=== PATIENT | female | born 1980 | race Caucasian/White ===

== ENCOUNTER 2018-06-20 13:22 | Inpatient (IN) | payer MEDICAID, OTHER ==
[~2018-06-20] VITALS: Ht 180.3 cm; Wt 100.5 kg
[2018-06-20] MEDS ORDERED: SODIUM CHLORIDE 0.9% 1,000ML IVBOLUS ONE (13:30)
[2018-06-20] MEDS ORDERED: SODIUM CHLORIDE FLUSH 10ML SYR IVF ONE (13:30)
[2018-06-20] MEDS ORDERED: SODIUM CHLORIDE 0.9% IV PRN (13:32)
[2018-06-20] MEDS ORDERED: MIDAZOLAM HCL IV PRN (13:32)
[2018-06-20] MEDS ORDERED: LACTULOSE 20 GM/30 ML UDC NG PRN (14:00)
[2018-06-20] MEDS ORDERED: LIDOCAINE-MPF 1%, 2ML ENDO PRN (14:00)
[2018-06-20] MEDS ORDERED: SENNOSIDES 8.8 MG/5 ML ORAL SOL NG PRN (14:00)
[2018-06-20] MEDS ORDERED: PLEASE ENTER ALLERGIES MC SCH (14:00)
[2018-06-20] MEDS ORDERED: DEXTROSE 4 GM TAB.CHEW PO PRN (14:00)
[2018-06-20] MEDS ORDERED: DEXTROSE 50%, 50ML SYRINGE IVPush PRN (14:00)
[2018-06-20] MEDS ORDERED: PLEASE ENTER HEIGHT AND WEIGHT MC SCH (14:00)
[2018-06-20] MEDS ORDERED: PHARMACY MAY ADJ FOR RENAL FX MC SCH (14:00)
[2018-06-20] MEDS ORDERED: BISACODYL 10 MG SUPP PR PRN ×2 (14:00→16:30)
[2018-06-20] MEDS: ALBUTEROL/IPRATROPIUM 2.5MG/0.5MG, 3 ML INLINE SCH ×3 (14:00→22:49)
[2018-06-20] MEDS ORDERED: GLUCAGON 1 MG IM PRN (14:00)
[2018-06-20] MEDS ORDERED: SENNA/DOCUSATE TABLET NG PRN (14:00)
[2018-06-20 14:23] LABS: MICROSCOPIC INDICATED
[2018-06-20] MEDS ORDERED: ALBUTEROL/IPRATROPIUM 2.5MG/0.5MG, 3 ML ONE (14:27)
[2018-06-20 14:30] LABS: AMPHETAMINE SCREEN, URINE Negative (Negative); BARBITURATE SCREEN, URINE Negative (Negative); BENZODIAZEPINE SCREEN, URINE Negative (Negative); CANNABINOID SCREEN, URINE Negative (Negative); COCAINE SCREEN, URINE Negative (Negative); METHADONE SCREEN, URINE Negative (Negative); OPIATE SCREEN, URINE Negative (Negative)
[2018-06-20 14:32] LABS: ALBUMIN 1.6 g/dL (3.4-5.0); ANION GAP 29 mmol/L (5-15); CALCIUM 6.6 mg/dL (8.5-10.1); CHLORIDE 72 mmol/L (98-107); INTERNATIONAL NORMALIZED RATIO 2.19 (0.93-1.1); PROTHROMBIN TIME 22.5 Seconds (9.6-11.5)
--- NOTE | 2018-06-20 14:36 | NUR ---
CT WAITING FOR MD TO SAY PT READY FOR TRANSPORT
[2018-06-20 14:38] LABS: MEAN CORPUSCULAR HEMOGLOBIN 33.4 pg (27.0-34.8); MEAN CORPUSCULAR HGB CONC 32.9 g/dL (32.4-35.8); MEAN CORPUSCULAR VOLUME 101.4 fL (80-100); MEAN PLATELET VOLUME 9.1 fL (7.4-10.4); PLATELET COUNT 97 x10^3/uL (130-400); RED BLOOD COUNT 2.94 x10^6/uL (3.82-5.3); RED CELL DISTRIBUTION WIDTH 23.9 % (9.6-15.2)
[2018-06-20 14:45] LABS: BILIRUBIN,TOTAL 12.5 mg/dL (0.2-1.0); CREATININE 0.82 mg/dL (0.55-1.02)
[2018-06-20 14:46] LABS: ALANINE AMINOTRANSFERASE 135 U/L (12-78); ALKALINE PHOSPHATASE 163 U/L (45-117); TRIGLYCERIDES 324 mg/dL (50-200)
[2018-06-20 14:47] LABS: CULTURE INDICATED? YES
[2018-06-20 14:47] LABS: TROPONIN I 0.051 ng/mL (0.000-0.045)
[2018-06-20 14:51] LABS: ACETAMINOPHEN < 2 mcg/mL (10-30); SALICYLATE LEVEL < 1.7 mg/dL (2.8-20.0)
--- NOTE | 2018-06-20 14:52 | NUR ---
CENTRAL LINE PLACED.
[2018-06-20] MEDS ORDERED: NOREPINEPHRINE 4 MG in SODIUM CHLORIDE 0.9% 246 ML IV PRN (15:00)
[2018-06-20] MEDS ORDERED: PIPERACILLIN/TAZO/PMX 3.375GM 50 ML IV SCH (15:00)
--- NOTE | 2018-06-20 15:03 | NUR ---
CENTRAL LINE PLACED IN R IJ W/O COMPLICATION OR SIGNIFICANT BLEEDING. LEVOPHED INITIATIED. PT REMAINS ON ARTIC SUN.
[2018-06-20 15:07] LABS: CREATINE KINASE, TOTAL 1494 U/L (26-192)
--- NOTE | 2018-06-20 15:13 | NUR ---
CT PENDING;PT UNSTABLE PER RN-SHE WILL CALL WHEN READY
[2018-06-20 15:18] LABS: MD YES
[2018-06-20 15:20] LABS: BAND#(MANUAL) 1.73 x10^3/uL; BANDS%(MANUAL) 9 % (0-7); LYMPH#(MANUAL) 1.15 x10^3/uL (1-3.4); LYMPHS% (MANUAL) 6 % (22-44); MONOS#(MANUAL) 0.58 x10^3/uL (0.3-2.7); MONOS% (MANUAL) 3 % (2-9); NRBC % (MANUAL) 3 % (0-1); SEG#(MANUAL) 15.74 x10^3/uL (1.8-6.8); SEGS% (MANUAL) 82 % (42-75)
--- NOTE | 2018-06-20 15:20 | NUR ---
CXR DONE CONFIRMING CENTRAL LINE PLACEMENT. LEVOPHED INFUSING. BP REMAINS 55/20. + CENTRAL PULSES. ABSENT PERIPHERAL PULSES. ABG DRAWN. FAMILY AT .
[2018-06-20 15:21] LABS: ANISOCYTOSIS 2+
[2018-06-20 15:22] LABS: HYPOCHROMIA 1+; POLYCHROMASIA 1+
[2018-06-20 15:24] LABS: BASOPHILLIC STIPPLING 1+; TOXIC GRAN 1+
[2018-06-20 15:25] LABS: <PLATELET ESTIMATE> DECREASED; LARGE PLATELETS 1+
[2018-06-20] MEDS ORDERED: SODIUM CHLORIDE 0.9%, 500ML IVBOLUS ONE (15:30)
--- NOTE | 2018-06-20 15:38 | NUR ---
BP IMPROVING WITH LEVOPHED AND W/O NS BOLUS
--- NOTE | 2018-06-20 15:47 | NUR ---
CALLING REPORT TO CALVIN WALLER
--- NOTE | 2018-06-20 15:54 | NUR ---
REPORT CALLED TO CALVIN WALLER. DR LOVE TO BS. PT TO GO FOR CT /A TXR TO CCU.
[2018-06-20] MEDS: INSULIN LISPRO 100 UNITS/ML, PEN SQ-INSULIN SCH ×2 (16:00→21:30)
--- NOTE | 2018-06-20 16:15 | NUR ---
PT TRANSPORTED TO CT WITH RN, TECH, RT BAGGING PT. PT THEN TRANSPORTED TO CCU
[2018-06-20] MEDS ORDERED: PHYTONADIONE 10 MG in SODIUM CHLORIDE 0.9% 50 ML IV ONE (16:30)
[2018-06-20] MEDS ORDERED: POLYETHYLENE GLYCOL 17 GM PACKET PO PRN (16:30)
[2018-06-20] MEDS ORDERED: morphine SULFATE 10 MG/ML, 1ML IVPush PRN (16:30)
[2018-06-20] MEDS ORDERED: OXYcodone IR 5MG TABLET PO PRN (16:30)
[2018-06-20] MEDS ORDERED: ONDANSETRON 2MG/ML, 2ML IVPush PRN (16:30)
[2018-06-20] MEDS ORDERED: CALCIUM CHLORIDE 13.6 MEQ in SODIUM CHLORIDE 0.9% 100 ML IV ONE (17:00)
[2018-06-20] MEDS ORDERED: PROPOFOL 100 ML IV ONE (17:02)
[2018-06-20 17:05] LABS: CHLORIDE 76 mmol/L (98-107)
[2018-06-20 17:09] LABS: TROPONIN I 0.058 ng/mL (0.000-0.045)
[2018-06-20] MEDS: THIAMINE 200 MG in SODIUM CHLORIDE 0.9% 50 ML IV SCH (17:14)
[2018-06-20 17:15] LABS: ANION GAP 30 mmol/L (5-15); CALCIUM 6.3 mg/dL (8.5-10.1); CREATININE 0.75 mg/dL (0.55-1.02)
[2018-06-20] MEDS: DEXTROSE 5% IV SCH (17:20)
[2018-06-20] MEDS: POTASSIUM CHLORIDE IV SCH (17:20)
[2018-06-20] MEDS: SODIUM BICARB 8.4% IV SCH (17:20)
[2018-06-20] MEDS: LINEZOLID PMX 600MG/300ML 300 ML IV SCH (17:21)
[2018-06-20] MEDS ORDERED: VECURONIUM 10 MG ONE (17:32)
[2018-06-20] MEDS: FENTANYL PF 100 MCG/2ML IVPush PRN (17:43)
[2018-06-20] MEDS: ALBUMIN HUMAN 25% 100 ML IV SCH (17:51)
[2018-06-20] MEDS: MEROPENEM 1 GM in SODIUM CHLORIDE 0.9% 100 ML IV SCH (17:51)
[2018-06-20] MEDS: LORazepam 2 MG/ML, 1ML IVPush PRN (18:05)
[2018-06-20] MEDS ORDERED: SODIUM PHOSPHATE 20 MMOL in SODIUM CHLORIDE 0.9% 250 ML IVPB PRN (18:16)
[2018-06-20] MEDS: VECURONIUM 10 MG IVPush PRN (18:23)
[2018-06-20] MEDS ORDERED: KSCALE TO 4.0 IV SCH ×2 (18:30)
[2018-06-20] MEDS ORDERED: CALCIUM CHLORIDE 13.6 MEQ in DEXTROSE 5% 100 ML IV PRN (18:30)
[2018-06-20] MEDS ORDERED: SODIUM PHOSPHATE 20 MMOL in SODIUM CHLORIDE 0.9% 250 ML IV PRN (18:30)
[2018-06-20] MEDS ORDERED: MAGNESIUM SULFATE 1 GM in SODIUM CHLORIDE 0.9% 50 ML IVPB PRN (18:30)
[2018-06-20] MEDS ORDERED: CALCIUM CHLORIDE 13.6 MEQ in DEXTROSE 5% 100 ML IVPB PRN (18:30)
[2018-06-20] MEDS: KSCALE TO 4.0 IV SCH ×2 (18:30→22:55)
[2018-06-20] MEDS ORDERED: FENTANYL PF 2,500 MCG in SODIUM CHLORIDE 0.9% 200 ML IV PRN (18:30)
[2018-06-20] MEDS ORDERED: POTASSIUM CHLORIDE PMX 100 ML IV ONE (18:30)
[2018-06-20] MEDS ORDERED: PROPOFOL 100 ML IV PRN ×3 (18:30)
[2018-06-20] MEDS: MAGNESIUM SULFATE 1 GM in SODIUM CHLORIDE 0.9% 50 ML IV PRN ×2 (19:12→22:53)
[2018-06-20] MEDS: BUSPIRONE 10 MG TABLET NG SCH (21:29)
[2018-06-20] MEDS: SODIUM CHLORIDE FLUSH 10ML SYR IVF SCH (21:29)
[2018-06-20 21:51] LABS: ANION GAP 22 mmol/L (5-15); CALCIUM 6.8 mg/dL (8.5-10.1); CHLORIDE 78 mmol/L (98-107); CREATININE 0.69 mg/dL (0.55-1.02)
[2018-06-20 21:54] LABS: TROPONIN I 0.046 ng/mL (0.000-0.045)
[2018-06-20] MEDS: ARTIFICIAL TEARS OINT 3.5 GM EACHEYE SCH (22:11)
[2018-06-20] MEDS ORDERED: POTASSIUM CHLORIDE 30 MEQ in SODIUM CHLORIDE 0.9% 100 ML IV ONE (23:00)
[2018-06-21] MEDS ORDERED: REGULAR INSULIN 62.5 UNITS in SODIUM CHLORIDE 0.9% 249.375 ML IV PRN
[2018-06-21] MEDS: ALBUMIN HUMAN 25% 100 ML IV SCH ×3 (00:59→15:15)
[2018-06-21] MEDS: DEXTROSE 5% IV SCH ×4 (01:36→21:53)
[2018-06-21] MEDS: SODIUM BICARB 8.4% IV SCH ×4 (01:36→21:53)
[2018-06-21] MEDS: POTASSIUM CHLORIDE IV SCH ×4 (01:36→21:53)
[2018-06-21] MEDS: MEROPENEM 1 GM in SODIUM CHLORIDE 0.9% 100 ML IV SCH ×3 (01:57→18:27)
[2018-06-21] MEDS ORDERED: MIDAZOLAM HCL 25 MG in SODIUM CHLORIDE 0.9% 245 ML IV PRN (02:00)
[2018-06-21] MEDS: ALBUTEROL/IPRATROPIUM 2.5MG/0.5MG, 3 ML INLINE SCH ×6 (02:12→23:00)
[2018-06-21] MEDS: KSCALE TO 4.0 IV SCH ×6 (02:30→22:30)
[2018-06-21 03:12] LABS: ANION GAP 17 mmol/L (5-15); CALCIUM 6.6 mg/dL (8.5-10.1); CHLORIDE 79 mmol/L (98-107); CREATININE 0.95 mg/dL (0.55-1.02)
[2018-06-21] MEDS ORDERED: POTASSIUM CHLORIDE PMX 100 ML IV ONE ×5 (03:30→23:00)
[2018-06-21] MEDS: MAGNESIUM SULFATE 1 GM in SODIUM CHLORIDE 0.9% 50 ML IV PRN ×3 (03:37→23:09)
[2018-06-21 04:00] VITALS: BP 110/64
[2018-06-21] MEDS: LINEZOLID PMX 600MG/300ML 300 ML IV SCH ×2 (04:20→16:16)
[2018-06-21] MEDS: ARTIFICIAL TEARS OINT 3.5 GM EACHEYE SCH ×3 (05:29→21:54)
[2018-06-21] MEDS: BUSPIRONE 10 MG TABLET NG SCH ×3 (05:30→21:54)
[2018-06-21 05:49] LABS: INTERNATIONAL NORMALIZED RATIO 1.91 (0.93-1.1); PROTHROMBIN TIME 19.7 Seconds (9.6-11.5)
[2018-06-21 05:56] LABS: CHLORIDE 79 mmol/L (98-107)
[2018-06-21] MEDS: FENTANYL PF 100 MCG/2ML IVPush PRN (05:58)
[2018-06-21 06:07] LABS: MEAN CORPUSCULAR HEMOGLOBIN 34.5 pg (27.0-34.8); MEAN CORPUSCULAR HGB CONC 34.4 g/dL (32.4-35.8); MEAN CORPUSCULAR VOLUME 100.3 fL (80-100); RED BLOOD COUNT 2.46 x10^6/uL (3.82-5.3); RED CELL DISTRIBUTION WIDTH 24.1 % (9.6-15.2)
[2018-06-21 06:19] LABS: ALANINE AMINOTRANSFERASE 112 U/L (12-78); ALKALINE PHOSPHATASE 100 U/L (45-117); ANION GAP 16 mmol/L (5-15); BILIRUBIN,TOTAL 14.6 mg/dL (0.2-1.0); CALCIUM 6.7 mg/dL (8.5-10.1); CREATINE KINASE, TOTAL 1177 U/L (26-192); CREATININE 0.99 mg/dL (0.55-1.02); TOTAL PROTEIN 3.3 g/dL (6.4-8.2)
[2018-06-21] MEDS: MIDAZOLAM HCL 50 MG in SODIUM CHLORIDE 0.9% 240 ML IV PRN ×4 (06:40→22:16)
[2018-06-21 06:43] LABS: MEAN PLATELET VOLUME 9.1 fL (7.4-10.4)
[2018-06-21 06:46] LABS: MD YES
[2018-06-21 06:48] LABS: BAND#(MANUAL) 0.68 x10^3/uL; BANDS%(MANUAL) 15 % (0-7); LYMPH#(MANUAL) 0.23 x10^3/uL (1-3.4); LYMPHS% (MANUAL) 5 % (22-44); METAMYELOCYTES# (MANUAL) 0.05 x10^3/uL (0-0); METAMYELOCYTES% (MANUAL) 1 % (0-1); SEG#(MANUAL) 3.56 x10^3/uL (1.8-6.8); SEGS% (MANUAL) 79 % (42-75)
[2018-06-21 06:49] LABS: ANISOCYTOSIS 2+; BASOPHILLIC STIPPLING 1+; HYPOCHROMIA 1+; POLYCHROMASIA 1+; TOXIC GRAN 1+
[2018-06-21 06:50] LABS: <PLATELET ESTIMATE> DECREASED; LARGE PLATELETS 1+; PLATELET COUNT 46 x10^3/uL (130-400)
[2018-06-21] MEDS: INSULIN LISPRO 100 UNITS/ML, PEN SQ-INSULIN SCH ×4 (07:00→21:00)
[2018-06-21] MEDS ORDERED: POTASSIUM PHOSPHATE 44 MEQ in SODIUM CHLORIDE 0.9% 500 ML IV ONE (07:30)
[2018-06-21] MEDS: SENNA/DOCUSATE TABLET PO SCH (08:50)
[2018-06-21] MEDS: PANTOPRAZOLE 40 MG IV IV SCH (09:07)
[2018-06-21] MEDS: PHYTONADIONE 10 MG/ML, 1ML SQ SCH (09:08)
[2018-06-21] MEDS: SODIUM CHLORIDE FLUSH 10ML SYR IVF SCH ×2 (09:08→21:54)
[2018-06-21 09:56] LABS: ANION GAP 12 mmol/L (5-15); CALCIUM 6.9 mg/dL (8.5-10.1); CHLORIDE 82 mmol/L (98-107)
[2018-06-21] MEDS ORDERED: SODIUM CHLORIDE 0.9% 1,000 ML IV SCH (10:00)
[2018-06-21] MEDS: LORazepam 2 MG/ML, 1ML IVPush PRN (12:59)
[2018-06-21] MEDS: NOREPINEPHRINE 4 MG in SODIUM CHLORIDE 0.9% 246 ML IV PRN ×3 (13:03→21:26)
[2018-06-21] MEDS: VECURONIUM 10 MG IVPush PRN (14:37)
[2018-06-21 15:22] LABS: ANION GAP 11 mmol/L (5-15); CALCIUM 6.9 mg/dL (8.5-10.1); CHLORIDE 85 mmol/L (98-107); CREATININE 0.81 mg/dL (0.55-1.02)
[2018-06-21] MEDS: THIAMINE 200 MG in SODIUM CHLORIDE 0.9% 50 ML IV SCH (18:27)
[2018-06-22] MEDS: NOREPINEPHRINE 4 MG in SODIUM CHLORIDE 0.9% 246 ML IV PRN (00:19)
[2018-06-22] MEDS: ALBUMIN HUMAN 25% 100 ML IV SCH ×3 (01:05→16:07)
[2018-06-22] MEDS ORDERED: VASOPRESSIN 100 UNIT in SODIUM CHLORIDE 0.9% 495 ML IV PRN (02:00)
[2018-06-22] MEDS: MEROPENEM 1 GM in SODIUM CHLORIDE 0.9% 100 ML IV SCH ×3 (02:04→16:59)
[2018-06-22] MEDS: KSCALE TO 4.0 IV SCH ×6 (02:30→22:30)
[2018-06-22] MEDS: ALBUTEROL/IPRATROPIUM 2.5MG/0.5MG, 3 ML INLINE SCH ×6 (03:00→22:48)
[2018-06-22] MEDS: NOREPINEPHRINE 8 MG in SODIUM CHLORIDE 0.9% 242 ML IV PRN ×3 (03:07→16:23)
[2018-06-22] MEDS: MIDAZOLAM HCL 50 MG in SODIUM CHLORIDE 0.9% 240 ML IV PRN ×2 (03:07→08:47)
[2018-06-22] MEDS: MAGNESIUM SULFATE 1 GM in SODIUM CHLORIDE 0.9% 50 ML IV PRN (03:13)
[2018-06-22] MEDS ORDERED: POTASSIUM CHLORIDE PMX 100 ML IV ONE (03:30)
[2018-06-22] MEDS: FENTANYL PF 2,500 MCG in SODIUM CHLORIDE 0.9% 200 ML IV PRN (03:44)
[2018-06-22 04:00] VITALS: BP 114/64
[2018-06-22] MEDS: LINEZOLID PMX 600MG/300ML 300 ML IV SCH ×2 (04:33→16:08)
[2018-06-22 04:55] LABS: INTERNATIONAL NORMALIZED RATIO 1.8 (0.93-1.1); PROTHROMBIN TIME 18.7 Seconds (9.6-11.5)
[2018-06-22 05:01] LABS: CHLORIDE 86 mmol/L (98-107)
[2018-06-22 05:06] LABS: MEAN CORPUSCULAR HGB CONC 35.1 g/dL (32.4-35.8); MEAN CORPUSCULAR VOLUME 99.7 fL (80-100); RED BLOOD COUNT 2.49 x10^6/uL (3.82-5.3); RED CELL DISTRIBUTION WIDTH 24.6 % (9.6-15.2)
[2018-06-22 05:07] LABS: ALANINE AMINOTRANSFERASE 98 U/L (12-78); ALBUMIN 2.6 g/dL (3.4-5.0); ALKALINE PHOSPHATASE 89 U/L (45-117); ANION GAP 9 mmol/L (5-15); CREATINE KINASE, TOTAL 272 U/L (26-192); CREATININE 0.92 mg/dL (0.55-1.02); TOTAL PROTEIN 3.9 g/dL (6.4-8.2)
[2018-06-22 05:09] LABS: BILIRUBIN,TOTAL 17.5 mg/dL (0.2-1.0)
[2018-06-22 05:46] LABS: MEAN PLATELET VOLUME 10.5 fL (7.4-10.4)
[2018-06-22 05:48] LABS: PLATELET COUNT 33 x10^3/uL (130-400)
[2018-06-22 05:50] LABS: MD YES
[2018-06-22 05:53] LABS: BAND#(MANUAL) 0.69 x10^3/uL; BANDS%(MANUAL) 23 % (0-7); EOS#(MANUAL) 0.06 x10^3/uL (0.0-0.4); EOS% (MANUAL) 2 % (1-7); LYMPH#(MANUAL) 0.15 x10^3/uL (1-3.4); LYMPHS% (MANUAL) 5 % (22-44); MONOS#(MANUAL) 0.12 x10^3/uL (0.3-2.7); MONOS% (MANUAL) 4 % (2-9); NRBC % (MANUAL) 4 % (0-1); REACTIVE LYMPHS # (MANUAL) 0.03 x10^3/uL (0-0); REACTIVE LYMPHS % (MANUAL) 1 % (0-0); SEG#(MANUAL) 1.95 x10^3/uL (1.8-6.8); SEGS% (MANUAL) 65 % (42-75); TOXIC GRAN 1+
[2018-06-22] MEDS: SODIUM BICARB 8.4% IV SCH (05:53)
[2018-06-22] MEDS: DEXTROSE 5% IV SCH (05:53)
[2018-06-22] MEDS: POTASSIUM CHLORIDE IV SCH (05:53)
[2018-06-22 05:54] LABS: ANISOCYTOSIS 2+; BASOPHILLIC STIPPLING 1+; HYPOCHROMIA 1+
[2018-06-22] MEDS: BUSPIRONE 10 MG TABLET NG SCH ×3 (05:54→21:00)
[2018-06-22] MEDS: ARTIFICIAL TEARS OINT 3.5 GM EACHEYE SCH ×2 (05:54→13:09)
[2018-06-22 05:55] LABS: TARGET CELLS 1+
[2018-06-22 05:56] LABS: <PLATELET ESTIMATE> DECREASED; LARGE PLATELETS 1+; PMNS WITH VACUOLES 1+
[2018-06-22] MEDS: INSULIN LISPRO 100 UNITS/ML, PEN SQ-INSULIN SCH ×4 (07:00→21:00)
[2018-06-22] MEDS: SENNA/DOCUSATE TABLET PO SCH (07:56)
[2018-06-22] MEDS: PHYTONADIONE 10 MG/ML, 1ML SQ SCH (08:51)
[2018-06-22] MEDS: PANTOPRAZOLE 40 MG IV IV SCH (08:51)
[2018-06-22] MEDS: SODIUM CHLORIDE FLUSH 10ML SYR IVF SCH ×2 (08:51→21:00)
[2018-06-22] MEDS ORDERED: SODIUM CHLORIDE 0.9% 1,000 ML IV SCH (11:00)
[2018-06-22] MEDS: THIAMINE 200 MG in SODIUM CHLORIDE 0.9% 50 ML IV SCH (16:08)
[2018-06-22] MEDS ORDERED: D5%-0.9% NACL 1,000 ML IV SCH (16:30)
[2018-06-22] MEDS: D5%-0.9% NACL 1,000 ML IV SCH (16:59)
[2018-06-22 18:29] LABS: ALANINE AMINOTRANSFERASE 90 U/L (12-78); ALBUMIN 2.8 g/dL (3.4-5.0); ANION GAP 12 mmol/L (5-15); CALCIUM 6.9 mg/dL (8.5-10.1); CHLORIDE 85 mmol/L (98-107)
[2018-06-22 18:31] LABS: ALKALINE PHOSPHATASE 94 U/L (45-117); CREATININE 1.31 mg/dL (0.55-1.02); TOTAL PROTEIN 4.1 g/dL (6.4-8.2)
[2018-06-22 18:41] LABS: BILIRUBIN,TOTAL 17.1 mg/dL (0.2-1.0)
[2018-06-22] MEDS ORDERED: SODIUM CHLORIDE 0.9%, 250ML IVBOLUS ONE (19:00)
[2018-06-22 22:09] LABS: ALANINE AMINOTRANSFERASE 89 U/L (12-78); ALBUMIN 2.7 g/dL (3.4-5.0); ANION GAP 11 mmol/L (5-15); CALCIUM 6.8 mg/dL (8.5-10.1); CHLORIDE 86 mmol/L (98-107); CREATININE 1.48 mg/dL (0.55-1.02)
[2018-06-22 22:12] LABS: ALKALINE PHOSPHATASE 113 U/L (45-117)
[2018-06-23] MEDS: ARTIFICIAL TEARS OINT 3.5 GM EACHEYE SCH ×2 (00:28→06:00)
[2018-06-23] MEDS: ALBUMIN HUMAN 25% 100 ML IV SCH ×3 (00:29→17:14)
[2018-06-23] MEDS: MEROPENEM 1 GM in SODIUM CHLORIDE 0.9% 100 ML IV SCH ×3 (01:26→17:14)
[2018-06-23] MEDS: KSCALE TO 4.0 IV SCH ×3 (02:30→10:30)
[2018-06-23 02:37] LABS: ALBUMIN 2.8 g/dL (3.4-5.0); ANION GAP 9 mmol/L (5-15); CALCIUM 7.4 mg/dL (8.5-10.1); CHLORIDE 89 mmol/L (98-107); CREATININE 1.52 mg/dL (0.55-1.02)
[2018-06-23 02:39] LABS: ALANINE AMINOTRANSFERASE 78 U/L (12-78); ALKALINE PHOSPHATASE 108 U/L (45-117); TOTAL PROTEIN 4.1 g/dL (6.4-8.2)
[2018-06-23 02:43] LABS: BILIRUBIN,TOTAL 17.2 mg/dL (0.2-1.0)
[2018-06-23] MEDS: ALBUTEROL/IPRATROPIUM 2.5MG/0.5MG, 3 ML INLINE SCH ×6 (03:00→23:00)
[2018-06-23] MEDS: NOREPINEPHRINE 8 MG in SODIUM CHLORIDE 0.9% 242 ML IV PRN (03:41)
[2018-06-23] MEDS: LINEZOLID PMX 600MG/300ML 300 ML IV SCH ×2 (03:41→16:13)
[2018-06-23] MEDS: BUSPIRONE 10 MG TABLET NG SCH (03:48)
[2018-06-23 04:00] VITALS: BP 115/64
[2018-06-23 04:23] LABS: ALANINE AMINOTRANSFERASE 83 U/L (12-78); ALBUMIN 2.9 g/dL (3.4-5.0); ANION GAP 11 mmol/L (5-15); CALCIUM 6.7 mg/dL (8.5-10.1); CHLORIDE 89 mmol/L (98-107); CREATININE 1.58 mg/dL (0.55-1.02)
[2018-06-23 04:26] LABS: ALKALINE PHOSPHATASE 115 U/L (45-117); TOTAL PROTEIN 4.1 g/dL (6.4-8.2)
[2018-06-23 04:27] LABS: MEAN CORPUSCULAR HEMOGLOBIN 35.1 pg (27.0-34.8); MEAN CORPUSCULAR HGB CONC 34.3 g/dL (32.4-35.8); MEAN CORPUSCULAR VOLUME 102.5 fL (80-100); MEAN PLATELET VOLUME 9.8 fL (7.4-10.4); RED BLOOD COUNT 2.01 x10^6/uL (3.82-5.3); RED CELL DISTRIBUTION WIDTH 25.4 % (9.6-15.2)
[2018-06-23 04:32] LABS: TRIGLYCERIDES 339 mg/dL (50-200)
[2018-06-23 04:33] LABS: BILIRUBIN,TOTAL 18.4 mg/dL (0.2-1.0)
[2018-06-23 04:38] LABS: PLATELET COUNT 29 x10^3/uL (130-400)
[2018-06-23 05:08] LABS: MD YES
[2018-06-23 05:12] LABS: ANISOCYTOSIS 2+; BAND#(MANUAL) 4.13 x10^3/uL; BANDS%(MANUAL) 24 % (0-7); HYPOCHROMIA 1+; LYMPH#(MANUAL) 0.52 x10^3/uL (1-3.4); LYMPHS% (MANUAL) 3 % (22-44); MONOS#(MANUAL) 0.52 x10^3/uL (0.3-2.7); MONOS% (MANUAL) 3 % (2-9); SEG#(MANUAL) 12.04 x10^3/uL (1.8-6.8); SEGS% (MANUAL) 70 % (42-75)
[2018-06-23 05:13] LABS: TARGET CELLS 1+
[2018-06-23 05:14] LABS: <PLATELET ESTIMATE> DECREASED; BASOPHILLIC STIPPLING 1+; LARGE PLATELETS 1+; PMNS WITH VACUOLES 1+; TOXIC GRAN 1+
[2018-06-23] MEDS: INSULIN LISPRO 100 UNITS/ML, PEN SQ-INSULIN SCH ×4 (07:00→20:00)
[2018-06-23] MEDS ORDERED: PANTOPRAZOLE 40 MG IV ONE (08:22)
[2018-06-23] MEDS ORDERED: SODIUM CHLORIDE 0.9%, 250ML IVBOLUS ONE ×2 (08:30→19:30)
[2018-06-23] MEDS: SENNA/DOCUSATE TABLET PO SCH (08:37)
[2018-06-23] MEDS: PANTOPRAZOLE 40 MG IV IV SCH ×2 (08:37→20:47)
[2018-06-23] MEDS: PHYTONADIONE 10 MG/ML, 1ML SQ SCH (08:37)
[2018-06-23] MEDS: SODIUM CHLORIDE FLUSH 10ML SYR IVF SCH ×2 (08:42→20:57)
--- NOTE | 2018-06-23 11:12 | NUR ---
Tf goal in RD note if needed
[2018-06-23 12:38] LABS: ANION GAP 7 mmol/L (5-15); CALCIUM 7.1 mg/dL (8.5-10.1); CHLORIDE 90 mmol/L (98-107); CREATININE 1.59 mg/dL (0.55-1.02)
[2018-06-23] MEDS: THIAMINE 200 MG in SODIUM CHLORIDE 0.9% 50 ML IV SCH (16:13)
[2018-06-23 16:14] LABS: ANION GAP 9 mmol/L (5-15); CALCIUM 7.4 mg/dL (8.5-10.1); CHLORIDE 91 mmol/L (98-107); CREATININE 1.71 mg/dL (0.55-1.02)
[2018-06-23] MEDS: D5%-0.9% NACL 1,000 ML IV SCH (17:14)
[2018-06-23 20:44] LABS: ANION GAP 11 mmol/L (5-15); CALCIUM 7.3 mg/dL (8.5-10.1); CHLORIDE 92 mmol/L (98-107); CREATININE 1.72 mg/dL (0.55-1.02)
[2018-06-24 00:40] LABS: ANION GAP 11 mmol/L (5-15); CALCIUM 7.6 mg/dL (8.5-10.1); CHLORIDE 93 mmol/L (98-107)
[2018-06-24 00:42] LABS: CREATININE 1.82 mg/dL (0.55-1.02)
[2018-06-24] MEDS: MEROPENEM 1 GM in SODIUM CHLORIDE 0.9% 100 ML IV SCH (01:18)
[2018-06-24] MEDS: ALBUMIN HUMAN 25% 100 ML IV SCH ×3 (01:18→16:25)
[2018-06-24] MEDS: ALBUTEROL/IPRATROPIUM 2.5MG/0.5MG, 3 ML INLINE SCH ×6 (02:10→22:33)
[2018-06-24 04:00] VITALS: BP 97/58
[2018-06-24] MEDS: INSULIN LISPRO 100 UNITS/ML, PEN SQ-INSULIN SCH ×6 (04:00→20:00)
[2018-06-24] MEDS: LINEZOLID PMX 600MG/300ML 300 ML IV SCH (04:13)
[2018-06-24 05:29] LABS: ALANINE AMINOTRANSFERASE 59 U/L (12-78); ANION GAP 10 mmol/L (5-15); CALCIUM 8.1 mg/dL (8.5-10.1); CHLORIDE 93 mmol/L (98-107)
[2018-06-24 05:34] LABS: ALKALINE PHOSPHATASE 126 U/L (45-117); CREATINE KINASE, TOTAL 215 U/L (26-192); CREATININE 1.82 mg/dL (0.55-1.02); TOTAL PROTEIN 4.1 g/dL (6.4-8.2)
[2018-06-24 05:48] LABS: MEAN CORPUSCULAR HEMOGLOBIN 36.1 pg (27.0-34.8); MEAN CORPUSCULAR HGB CONC 34.9 g/dL (32.4-35.8); MEAN CORPUSCULAR VOLUME 103.3 fL (80-100); RED BLOOD COUNT 1.72 x10^6/uL (3.82-5.3); RED CELL DISTRIBUTION WIDTH 24.3 % (9.6-15.2)
[2018-06-24 06:26] LABS: MEAN PLATELET VOLUME 10.2 fL (7.4-10.4)
[2018-06-24 06:28] LABS: PLATELET COUNT 20 x10^3/uL (130-400)
[2018-06-24 06:29] LABS: MD YES
[2018-06-24 06:30] LABS: EOS#(MANUAL) 0.15 x10^3/uL (0.0-0.4); EOS% (MANUAL) 1 % (1-7); LYMPHS% (MANUAL) 4 % (22-44); MONOS% (MANUAL) 2 % (2-9)
[2018-06-24 06:31] LABS: BANDS%(MANUAL) 6 % (0-7); SEG#(MANUAL) 13.05 x10^3/uL (1.8-6.8); SEGS% (MANUAL) 87 % (42-75)
[2018-06-24 06:32] LABS: ANISOCYTOSIS 2+; BASOPHILLIC STIPPLING 1+; TOXIC GRAN 2+
[2018-06-24 06:34] LABS: TARGET CELLS 1+
[2018-06-24 06:35] LABS: <PLATELET ESTIMATE> DECREASED; LARGE PLATELETS 1+
[2018-06-24 07:45] VITALS: BP 95/58
[2018-06-24] MEDS ORDERED: SODIUM PHOSPHATE 20 MMOL in SODIUM CHLORIDE 0.9% 500 ML IV ONE (08:30)
[2018-06-24] MEDS: SENNA/DOCUSATE TABLET PO SCH (09:00)
[2018-06-24 09:09] LABS: ANION GAP 10 mmol/L (5-15); CALCIUM 7.9 mg/dL (8.5-10.1); CHLORIDE 94 mmol/L (98-107); CREATININE 1.83 mg/dL (0.55-1.02)
[2018-06-24] MEDS ORDERED: SODIUM CHLORIDE 0.9%, 500ML IVBOLUS ONE (10:00)
[2018-06-24 10:35] LABS: ANION GAP 9 mmol/L (5-15); CALCIUM 8.1 mg/dL (8.5-10.1); CHLORIDE 94 mmol/L (98-107)
[2018-06-24 11:00] LABS: CREATININE 1.81 mg/dL (0.55-1.02)
[2018-06-24] MEDS: PANTOPRAZOLE 40 MG IV IV SCH ×2 (11:01→20:47)
[2018-06-24] MEDS: SODIUM CHLORIDE FLUSH 10ML SYR IVF SCH ×2 (11:02→20:48)
[2018-06-24] MEDS: D5%-0.9% NACL 1,000 ML IV SCH ×2 (11:03→20:48)
[2018-06-24] MEDS: CEFTRIAXONE PMX 2GM/50ML 50 ML IV SCH (14:09)
[2018-06-24] MEDS: OCTREOTIDE 500 MCG in SODIUM CHLORIDE 0.9% 249 ML IV SCH ×2 (14:15→22:39)
[2018-06-24 16:24] LABS: ANION GAP 12 mmol/L (5-15); CALCIUM 8.1 mg/dL (8.5-10.1); CHLORIDE 97 mmol/L (98-107)
[2018-06-24 16:31] LABS: CREATININE 1.82 mg/dL (0.55-1.02)
[2018-06-24] MEDS: THIAMINE 200 MG in SODIUM CHLORIDE 0.9% 50 ML IV SCH (17:16)
[2018-06-24] MEDS: FENTANYL PF 2,500 MCG in SODIUM CHLORIDE 0.9% 200 ML IV PRN (20:32)
[2018-06-24 21:07] LABS: ANION GAP 11 mmol/L (5-15); CALCIUM 8.1 mg/dL (8.5-10.1); CHLORIDE 97 mmol/L (98-107)
[2018-06-24 21:38] LABS: CREATININE 1.94 mg/dL (0.55-1.02)
[2018-06-25] MEDS: ALBUMIN HUMAN 25% 100 ML IV SCH ×3 (00:33→16:59)
[2018-06-25] MEDS: ALBUTEROL/IPRATROPIUM 2.5MG/0.5MG, 3 ML INLINE SCH ×6 (03:02→22:15)
[2018-06-25 04:00] VITALS: BP 112/69
[2018-06-25] MEDS: INSULIN LISPRO 100 UNITS/ML, PEN SQ-INSULIN SCH ×6 (04:00→20:00)
[2018-06-25 04:19] LABS: MEAN CORPUSCULAR HGB CONC 33.2 g/dL (32.4-35.8); MEAN CORPUSCULAR VOLUME 99.3 fL (80-100); MEAN PLATELET VOLUME 8.4 fL (7.4-10.4); RED BLOOD COUNT 2.43 x10^6/uL (3.82-5.3); RED CELL DISTRIBUTION WIDTH 25.4 % (9.6-15.2)
[2018-06-25 04:21] LABS: PLATELET COUNT 22 x10^3/uL (130-400)
[2018-06-25 04:24] LABS: MD YES
[2018-06-25 04:30] LABS: ALANINE AMINOTRANSFERASE 41 U/L (12-78); ALBUMIN 3.2 g/dL (3.4-5.0); ANION GAP 12 mmol/L (5-15); CALCIUM 7.7 mg/dL (8.5-10.1); CHLORIDE 98 mmol/L (98-107)
[2018-06-25 04:32] LABS: BANDS%(MANUAL) 3 % (0-7); EOS#(MANUAL) 0.13 x10^3/uL (0.0-0.4); EOS% (MANUAL) 1 % (1-7); LYMPH#(MANUAL) 1.33 x10^3/uL (1-3.4); LYMPHS% (MANUAL) 10 % (22-44); MONOS% (MANUAL) 6 % (2-9); MYELOCYTES# (MANUAL) 0.13 x10^3/uL (0-0); MYELOCYTES% (MANUAL) 1 % (0-0); NRBC % (MANUAL) 2 % (0-1); SEG#(MANUAL) 10.51 x10^3/uL (1.8-6.8); SEGS% (MANUAL) 79 % (42-75)
[2018-06-25 04:33] LABS: ALKALINE PHOSPHATASE 118 U/L (45-117); ANISOCYTOSIS 2+; OVALOCYTES 1+; TARGET CELLS 1+
[2018-06-25 04:34] LABS: <PLATELET ESTIMATE> DECREASED; BASOPHILLIC STIPPLING 1+; CREATININE 1.89 mg/dL (0.55-1.02); LARGE PLATELETS 1+; TOXIC GRAN 1+
[2018-06-25 04:36] LABS: BILIRUBIN,TOTAL 22.9 mg/dL (0.2-1.0); TOTAL PROTEIN 4.1 g/dL (6.4-8.2)
[2018-06-25] MEDS ORDERED: POTASSIUM PHOSPHATE 44 MEQ in SODIUM CHLORIDE 0.9% 500 ML IV ONE (05:00)
[2018-06-25] MEDS: SENNA/DOCUSATE TABLET PO SCH (09:00)
[2018-06-25] MEDS: OCTREOTIDE 500 MCG in SODIUM CHLORIDE 0.9% 249 ML IV SCH ×2 (09:20→19:19)
[2018-06-25] MEDS: CEFTRIAXONE PMX 2GM/50ML 50 ML IV SCH (09:36)
[2018-06-25] MEDS: PANTOPRAZOLE 40 MG IV IV SCH ×2 (09:37→20:44)
[2018-06-25] MEDS: SODIUM CHLORIDE FLUSH 10ML SYR IVF SCH ×2 (10:03→20:45)
[2018-06-25] MEDS: D5%-0.9% NACL 1,000 ML IV SCH ×2 (10:04→23:39)
[2018-06-25] MEDS: THIAMINE 100MG TABLET NG SCH (17:10)
[2018-06-26] MEDS: ALBUMIN HUMAN 25% 100 ML IV SCH ×3 (00:26→23:35)
[2018-06-26] MEDS: ALBUTEROL/IPRATROPIUM 2.5MG/0.5MG, 3 ML INLINE SCH ×6 (03:00→22:20)
[2018-06-26 04:00] VITALS: BP 123/77
[2018-06-26] MEDS: INSULIN LISPRO 100 UNITS/ML, PEN SQ-INSULIN SCH ×7 (04:00→23:41)
[2018-06-26] MEDS: OCTREOTIDE 500 MCG in SODIUM CHLORIDE 0.9% 249 ML IV SCH ×3 (04:17→23:35)
[2018-06-26 04:21] LABS: MEAN CORPUSCULAR HEMOGLOBIN 33.6 pg (27.0-34.8); MEAN CORPUSCULAR HGB CONC 33.3 g/dL (32.4-35.8); MEAN CORPUSCULAR VOLUME 100.9 fL (80-100); MEAN PLATELET VOLUME 9.1 fL (7.4-10.4); RED CELL DISTRIBUTION WIDTH 25.4 % (9.6-15.2)
[2018-06-26 04:22] LABS: PLATELET COUNT 31 x10^3/uL (130-400)
[2018-06-26 04:29] LABS: ALANINE AMINOTRANSFERASE 32 U/L (12-78); ALBUMIN 3.3 g/dL (3.4-5.0); ANION GAP 11 mmol/L (5-15); CALCIUM 7.9 mg/dL (8.5-10.1); CHLORIDE 103 mmol/L (98-107)
[2018-06-26 04:33] LABS: ALKALINE PHOSPHATASE 103 U/L (45-117); PREALBUMIN 7.3 mg/dL (20.0-40.0)
[2018-06-26 04:35] LABS: CREATININE 1.77 mg/dL (0.55-1.02); TOTAL PROTEIN 4.2 g/dL (6.4-8.2); TRIGLYCERIDES 143 mg/dL (50-200)
[2018-06-26 04:37] LABS: BILIRUBIN,TOTAL 24.6 mg/dL (0.2-1.0)
[2018-06-26 04:42] LABS: MD YES
[2018-06-26 04:44] LABS: <PLATELET ESTIMATE> DECREASED; <PLT MORPHOLOGY> NORMAL PLT MORPH; ANISOCYTOSIS 2+; BAND#(MANUAL) 1.09 x10^3/uL; BANDS%(MANUAL) 8 % (0-7); EOS#(MANUAL) 0.14 x10^3/uL (0.0-0.4); EOS% (MANUAL) 1 % (1-7); LYMPH#(MANUAL) 0.27 x10^3/uL (1-3.4); LYMPHS% (MANUAL) 2 % (22-44); METAMYELOCYTES# (MANUAL) 0.54 x10^3/uL (0-0); METAMYELOCYTES% (MANUAL) 4 % (0-1); MONOS#(MANUAL) 1.22 x10^3/uL (0.3-2.7); MONOS% (MANUAL) 9 % (2-9); MYELOCYTES# (MANUAL) 0.14 x10^3/uL (0-0); MYELOCYTES% (MANUAL) 1 % (0-0); OVALOCYTES 1+; SEGS% (MANUAL) 75 % (42-75); TARGET CELLS 1+; TOXIC GRAN 1+
[2018-06-26] MEDS ORDERED: MAGNESIUM SULFATE PMX 2GM/50ML 50 ML IV ONE (07:30)
[2018-06-26] MEDS ORDERED: SODIUM PHOSPHATE 20 MMOL in SODIUM CHLORIDE 0.9% 500 ML IV ONE (07:30)
[2018-06-26] MEDS ORDERED: CEFAZOLIN 2,000 MG in SODIUM CHLORIDE 0.9% 50 ML IV SCH (07:30)
[2018-06-26] MEDS: PANTOPRAZOLE 40 MG IV IV SCH ×2 (10:41→21:38)
[2018-06-26] MEDS: METOCLOPRAMIDE 5 MG/ML, 2ML IV SCH ×3 (10:41→21:38)
[2018-06-26] MEDS: THIAMINE 100MG TABLET NG SCH (10:41)
[2018-06-26] MEDS: SENNA/DOCUSATE TABLET PO SCH (10:41)
[2018-06-26] MEDS: CEFAZOLIN PMX 2GM/50ML 50 ML IVPB SCH ×3 (10:42→23:35)
[2018-06-26] MEDS: SODIUM CHLORIDE FLUSH 10ML SYR IVF SCH ×2 (10:45→21:38)
[2018-06-26] MEDS: SILVER SULF. CRM 1% , 25GM TP SCH ×2 (12:43→21:38)
[2018-06-26] MEDS: D5%-0.9% NACL 1,000 ML IV SCH (12:56)
[2018-06-27] MEDS: ALBUTEROL/IPRATROPIUM 2.5MG/0.5MG, 3 ML INLINE SCH ×6 (02:20→22:50)
[2018-06-27] MEDS: METOCLOPRAMIDE 5 MG/ML, 2ML IV SCH ×4 (03:24→20:23)
[2018-06-27] MEDS: D5%-0.9% NACL 1,000 ML IV SCH (03:24)
[2018-06-27] MEDS: INSULIN LISPRO 100 UNITS/ML, PEN SQ-INSULIN SCH ×4 (04:00→20:29)
[2018-06-27 04:35] LABS: ANION GAP 9 mmol/L (5-15); CALCIUM 7.8 mg/dL (8.5-10.1); CHLORIDE 107 mmol/L (98-107); CREATININE 1.56 mg/dL (0.55-1.02)
[2018-06-27 04:48] LABS: MEAN CORPUSCULAR HEMOGLOBIN 35.3 pg (27.0-34.8); MEAN CORPUSCULAR HGB CONC 34.4 g/dL (32.4-35.8); MEAN CORPUSCULAR VOLUME 102.6 fL (80-100); RED BLOOD COUNT 1.86 x10^6/uL (3.82-5.3); RED CELL DISTRIBUTION WIDTH 24.8 % (9.6-15.2)
[2018-06-27 05:44] LABS: MD YES; MEAN PLATELET VOLUME 9.3 fL (7.4-10.4)
[2018-06-27 05:46] LABS: PLATELET COUNT 34 x10^3/uL (130-400)
[2018-06-27 05:49] LABS: BAND#(MANUAL) 0.71 x10^3/uL; BANDS%(MANUAL) 5 % (0-7); BASOS#(MANUAL) 0.14 x10^3/uL (0-0.1); BASOS% (MANUAL) 1 % (0-1); LYMPH#(MANUAL) 0.99 x10^3/uL (1-3.4); LYMPHS% (MANUAL) 7 % (22-44); METAMYELOCYTES# (MANUAL) 0.28 x10^3/uL (0-0); METAMYELOCYTES% (MANUAL) 2 % (0-1); MONOS#(MANUAL) 0.28 x10^3/uL (0.3-2.7); MONOS% (MANUAL) 2 % (2-9); MYELOCYTES# (MANUAL) 0.14 x10^3/uL (0-0); MYELOCYTES% (MANUAL) 1 % (0-0); SEG#(MANUAL) 11.64 x10^3/uL (1.8-6.8); SEGS% (MANUAL) 82 % (42-75)
[2018-06-27 05:50] LABS: ANISOCYTOSIS 2+; POLYCHROMASIA 1+; STOMATOCYTES 1+
[2018-06-27 05:51] LABS: <PLATELET ESTIMATE> DECREASED; <PLT MORPHOLOGY> NORMAL PLT MORPH; OVALOCYTES 1+; TOXIC GRAN 1+
[2018-06-27 06:31] VITALS: BP 129/87
[2018-06-27] MEDS: CEFAZOLIN PMX 2GM/50ML 50 ML IVPB SCH ×3 (06:33→23:52)
[2018-06-27 06:46] VITALS: BP 123/90
[2018-06-27 07:00] VITALS: BP 133/89
[2018-06-27] MEDS ORDERED: POTASSIUM CHLORIDE 10% 40 MEQ/30 ML UDC PO ONE (07:00)
[2018-06-27 08:00] VITALS: BP 139/92
[2018-06-27] MEDS: SENNA/DOCUSATE TABLET PO SCH (08:40)
[2018-06-27] MEDS: SODIUM CHLORIDE FLUSH 10ML SYR IVF SCH ×2 (08:44→20:24)
[2018-06-27] MEDS: PANTOPRAZOLE 40 MG IV IV SCH ×2 (08:44→20:23)
[2018-06-27] MEDS: SILVER SULF. CRM 1% , 25GM TP SCH ×2 (08:45→20:29)
[2018-06-27] MEDS: FUROSEMIDE 20 MG/2 ML IV SCH ×2 (08:45→20:23)
[2018-06-27 09:15] VITALS: BP 128/75
[2018-06-27 14:18] LABS: ALBUMIN 3.1 g/dL (3.4-5.0)
[2018-06-27 14:30] LABS: BILIRUBIN,INDIRECT 4.2 mg/dL (0.0-2.0)
[2018-06-27 14:34] LABS: TOTAL PROTEIN 4.2 g/dL (6.4-8.2)
[2018-06-27 14:35] LABS: BILIRUBIN,TOTAL 24.6 mg/dL (0.2-1.0)
[2018-06-27 14:36] LABS: BILIRUBIN, DIRECT 20.4 mg/dL (0.1-0.2)
[2018-06-28] MEDS: METOCLOPRAMIDE 5 MG/ML, 2ML IV SCH ×4 (02:31→20:30)
[2018-06-28] MEDS: ALBUTEROL/IPRATROPIUM 2.5MG/0.5MG, 3 ML INLINE SCH ×3 (02:40→11:00)
[2018-06-28] MEDS: FENTANYL PF 100 MCG/2ML IVPush PRN (03:11)
[2018-06-28 04:36] LABS: MEAN CORPUSCULAR HEMOGLOBIN 34.5 pg (27.0-34.8); MEAN CORPUSCULAR HGB CONC 34.2 g/dL (32.4-35.8); MEAN CORPUSCULAR VOLUME 100.9 fL (80-100); RED BLOOD COUNT 2.05 x10^6/uL (3.82-5.3)
[2018-06-28 04:38] LABS: PLATELET COUNT 41 x10^3/uL (130-400); RED CELL DISTRIBUTION WIDTH 23.5 % (9.6-15.2)
[2018-06-28 04:40] LABS: INTERNATIONAL NORMALIZED RATIO 1.28 (0.93-1.1); PROTHROMBIN TIME 13.4 Seconds (9.6-11.5)
[2018-06-28 04:44] LABS: ANION GAP 7 mmol/L (5-15); CALCIUM 8.1 mg/dL (8.5-10.1); CHLORIDE 107 mmol/L (98-107)
[2018-06-28] MEDS: INSULIN LISPRO 100 UNITS/ML, PEN SQ-INSULIN SCH ×4 (05:05→21:48)
[2018-06-28 05:37] LABS: MD YES
[2018-06-28 05:39] LABS: EOS#(MANUAL) 0.14 x10^3/uL (0.0-0.4); EOS% (MANUAL) 1 % (1-7); LYMPH#(MANUAL) 0.68 x10^3/uL (1-3.4); LYMPHS% (MANUAL) 5 % (22-44); METAMYELOCYTES# (MANUAL) 0.54 x10^3/uL (0-0); METAMYELOCYTES% (MANUAL) 4 % (0-1); MYELOCYTES# (MANUAL) 0.14 x10^3/uL (0-0); MYELOCYTES% (MANUAL) 1 % (0-0); NRBC % (MANUAL) 1 % (0-1); SEG#(MANUAL) 9.86 x10^3/uL (1.8-6.8); SEGS% (MANUAL) 73 % (42-75)
[2018-06-28 05:40] LABS: BAND#(MANUAL) 1.49 x10^3/uL; BANDS%(MANUAL) 11 % (0-7); MONOS#(MANUAL) 0.68 x10^3/uL (0.3-2.7); MONOS% (MANUAL) 5 % (2-9); TOXIC GRAN 1+
[2018-06-28 05:41] LABS: ANISOCYTOSIS 2+; POLYCHROMASIA 1+; TARGET CELLS 1+
[2018-06-28 05:43] LABS: <PLATELET ESTIMATE> DECREASED; <PLT MORPHOLOGY> NORMAL PLT MORPH; STOMATOCYTES 1+
[2018-06-28 05:44] LABS: OVALOCYTES 1+
[2018-06-28 07:57] LABS: ALBUMIN 2.7 g/dL (3.4-5.0)
[2018-06-28 07:59] LABS: BILIRUBIN,INDIRECT 5.1 mg/dL (0.0-2.0)
[2018-06-28 08:04] LABS: BILIRUBIN, DIRECT 15.9 mg/dL (0.1-0.2)
[2018-06-28] MEDS: CEFAZOLIN PMX 2GM/50ML 50 ML IVPB SCH ×2 (08:15→16:49)
[2018-06-28] MEDS: POTASSIUM CHLORIDE 10% 40 MEQ/30 ML UDC PO SCH ×2 (08:15→21:49)
[2018-06-28] MEDS: FUROSEMIDE 20 MG/2 ML IV SCH ×2 (08:15→21:49)
[2018-06-28] MEDS: SENNA/DOCUSATE TABLET PO SCH (08:16)
[2018-06-28] MEDS: SODIUM CHLORIDE FLUSH 10ML SYR IVF SCH ×2 (08:16→21:49)
[2018-06-28] MEDS: PANTOPRAZOLE 40 MG IV IV SCH ×2 (08:16→21:49)
[2018-06-28] MEDS: SILVER SULF. CRM 1% , 25GM TP SCH ×2 (08:16→21:48)
[2018-06-28] MEDS ORDERED: ALBUTEROL SULFATE 2.5 MG/3 ML NPPB PRN (13:00)
[2018-06-28] MEDS ORDERED: MORPHINE SULFATE 4 MG/ML, 1ML IVPush PRN ×2 (21:00)
[2018-06-28] MEDS ORDERED: morphine SULFATE ORAL.CONC 20 MG/ML BC PRN (21:00)
[2018-06-28] MEDS ORDERED: PROCHLORPERAZINE 5 MG/ML, 2ML IVPush PRN (21:00)
[2018-06-28] MEDS ORDERED: morphine SULFATE ORAL.CONC 20 MG/ML SL PRN (21:00)
[2018-06-28] MEDS ORDERED: LORazepam 2 MG/ML, 1ML IVPush PRN (21:00)
[2018-06-28] MEDS ORDERED: LORazepam INTENSOL 2 MG/ML SL PRN (21:00)
[2018-06-28] MEDS: ALBUTEROL SULFATE 2.5 MG/3 ML NPPB SCH (21:15)
[2018-06-29] MEDS: CEFAZOLIN PMX 2GM/50ML 50 ML IVPB SCH ×3 (00:02→16:04)
[2018-06-29] MEDS: LORazepam 2 MG/ML, 1ML IVPush PRN (00:49)
[2018-06-29 04:40] LABS: ANION GAP 6 mmol/L (5-15); CALCIUM 8.1 mg/dL (8.5-10.1); CHLORIDE 106 mmol/L (98-107); CREATININE 1.35 mg/dL (0.55-1.02)
[2018-06-29 04:44] LABS: TRIGLYCERIDES 152 mg/dL (50-200)
[2018-06-29 04:58] LABS: MEAN CORPUSCULAR HGB CONC 34.1 g/dL (32.4-35.8); MEAN CORPUSCULAR VOLUME 102.8 fL (80-100); RED BLOOD COUNT 1.91 x10^6/uL (3.82-5.3); RED CELL DISTRIBUTION WIDTH 25.3 % (9.6-15.2)
[2018-06-29] MEDS: INSULIN LISPRO 100 UNITS/ML, PEN SQ-INSULIN SCH ×3 (05:10→16:00)
[2018-06-29 05:20] LABS: MD YES; MEAN PLATELET VOLUME 9.9 fL (7.4-10.4); PLATELET COUNT 80 x10^3/uL (130-400)
[2018-06-29 05:22] LABS: BAND#(MANUAL) 0.82 x10^3/uL; BANDS%(MANUAL) 7 % (0-7); EOS#(MANUAL) 0.12 x10^3/uL (0.0-0.4); EOS% (MANUAL) 1 % (1-7); LYMPH#(MANUAL) 0.82 x10^3/uL (1-3.4); LYMPHS% (MANUAL) 7 % (22-44); METAMYELOCYTES# (MANUAL) 0.47 x10^3/uL (0-0); METAMYELOCYTES% (MANUAL) 4 % (0-1); MONOS#(MANUAL) 0.35 x10^3/uL (0.3-2.7); MONOS% (MANUAL) 3 % (2-9); SEG#(MANUAL) 9.13 x10^3/uL (1.8-6.8); SEGS% (MANUAL) 78 % (42-75)
[2018-06-29 05:23] LABS: <PLATELET ESTIMATE> DECREASED; <PLT MORPHOLOGY> NORMAL PLT MORPH; ANISOCYTOSIS 2+; POLYCHROMASIA 1+; STOMATOCYTES 1+; TARGET CELLS 1+; TOXIC GRAN 1+
[2018-06-29] MEDS: SENNA/DOCUSATE TABLET PO SCH (07:22)
[2018-06-29] MEDS ORDERED: ALBUTEROL/IPRATROPIUM 2.5MG/0.5MG, 3 ML ONE (07:34)
[2018-06-29] MEDS: FUROSEMIDE 20 MG/2 ML IV SCH (09:00)
[2018-06-29] MEDS ORDERED: ALBUTEROL/IPRATROPIUM 2.5MG/0.5MG, 3 ML NPPB SCH (09:00)
[2018-06-29] MEDS: ALBUTEROL SULFATE 2.5 MG/3 ML NPPB SCH (09:00)
[2018-06-29] MEDS: SILVER SULF. CRM 1% , 25GM TP SCH (10:11)
[2018-06-29] MEDS: PANTOPRAZOLE 40 MG IV IV SCH (10:14)
[2018-06-29] MEDS: SODIUM CHLORIDE FLUSH 10ML SYR IVF SCH (10:28)
[2018-06-29] MEDS ORDERED: MORPHINE SULFATE 4 MG/ML, 1ML IVPush PRN (18:00)
[2018-06-29] MEDS ORDERED: ATROPINE OPHTH SOLN 1%, 2ML BC PRN (18:00)
[2018-06-29] MEDS: SCOPOLAMINE PATCH, 1.5MG PATCH.TD72 TD PRN ×2 (20:51→21:03)
[2018-06-29] MEDS: MORPHINE SULFATE 4 MG/ML, 1ML IVPush PRN ×2 (20:51→21:03)
== END 2018-06-30 03:46 | disposition expired | DRG 870 ==
LOC: EDSEX 13:22 → EDBD 13:22 → MERGE 13:22 → ED 14:40 → EDIP 15:00 → CCU 16:48
PROVIDERS: ADMIT Internal Medicine; ATTEND Internal Medicine
PROC: 5A1955Z Respiratory Ventilation, Greater than 96 Consecutive Hours (ICD-10-PCS; 2018-06-20)
PROC: 02HV33Z Insertion of Infusion Device into Superior Vena Cava, Percutaneous Approach (ICD-10-PCS; 2018-06-20)
PROC: B548ZZA Ultrasonography of Superior Vena Cava, Guidance (ICD-10-PCS; 2018-06-20)
PROC: 0BH17EZ Insertion of Endotracheal Airway into Trachea, Via Natural or Artificial Opening (ICD-10-PCS; 2018-06-20)
PROC: 5A12012 Performance of Cardiac Output, Single, Manual (ICD-10-PCS; 2018-06-20)
PROC: 5A2204Z Restoration of Cardiac Rhythm, Single (ICD-10-PCS; 2018-06-20)
PROC: 0T9B70Z Drainage of Bladder with Drainage Device, Via Natural or Artificial Opening (ICD-10-PCS; 2018-06-20)
PROC: 30233N1 Transfusion of Nonautologous Red Blood Cells into Peripheral Vein, Percutaneous Approach (ICD-10-PCS; principal; 2018-06-24)
DX: A40.9 Streptococcal sepsis, unspecified (principal); E43 Unspecified severe protein-calorie malnutrition; G92 Toxic encephalopathy; J15.211 Pneumonia due to Methicillin susceptible Staphylococcus aureus; J15.4 Pneumonia due to other streptococci; J69.0 Pneumonitis due to inhalation of food and vomit; J96.00 Acute respiratory failure, unspecified whether with hypoxia or hypercapnia; K70.41 Alcoholic hepatic failure with coma; K85.90 Acute pancreatitis without necrosis or infection, unspecified; N17.0 Acute kidney failure with tubular necrosis; R65.21 Severe sepsis with septic shock; D61.818 Other pancytopenia; E87.1 Hypo-osmolality and hyponatremia; K92.0 Hematemesis; M62.82 Rhabdomyolysis; N39.0 Urinary tract infection, site not specified; Z99.11 Dependence on respirator [ventilator] status; D68.9 Coagulation defect, unspecified; R73.9 Hyperglycemia, unspecified; A63.0 Anogenital (venereal) warts; B95.3 Streptococcus pneumoniae as the cause of diseases classified elsewhere; D63.8 Anemia in other chronic diseases classified elsewhere; E16.2 Hypoglycemia, unspecified; E87.70 Fluid overload, unspecified; F10.229 Alcohol dependence with intoxication, unspecified; I10 Essential (primary) hypertension; I46.9 Cardiac arrest, cause unspecified; I49.01 Ventricular fibrillation; K82.8 Other specified diseases of gallbladder; Z51.5 Encounter for palliative care; Z66 Do not resuscitate; Z88.0 Allergy status to penicillin; Z68.30 Body mass index [BMI] 30.0-30.9, adult
CPT/HCPCS: 36415; 36556; 36600; 51702; 70450; 70551; 71045; 76700; 80048; 80053; 80074; 80076; 80307; 80329; 81001; 82140; 82330; 82550; 82803; 82947; 82962; 83605; 83690; 83735; 84100; 84132; 84134; 84443; 84478; 84484; 85014; 85018; 85025; 85610; 85730; 86850; 86900; 86923; 87040; 87070; 87077; 87081; 87086; 87147; 87181; 87184; 87186; 87205; 87806; 93005; 93306; 94002; 94003; 94640; 96374; 99291; G0378; J0690; J0696; J1815; J2020; J2185; J2250; J2270; J2354; J2704; J3010; J3411; J3430; J3475; J3480; J7042; J7070; J7613; J7620; P9047; C9113; G0475; G0480; J1940; J2060; J2765; J7030; J7040; J7050; P9016